=== PATIENT | male | born 1980 | race American Indian/Alaskan Native ===

== ENCOUNTER 2016-12-19 18:51 | Inpatient (IN) | payer OTHER ==
[2016-12-19 20:09] LABS: Hematocrit 46.3 % (35.5-45.6); Hemoglobin 15.6 gm/dl (11.8-15.2); Mean Corpuscular HGB Conc 34 % (32-34); Mean Corpuscular Hemoglobin 29 pg (28-32); Mean Corpuscular Volume 85 fl (84-94); Platelet Count 133 K/mm3 (140-440); Red Blood Count 5.41 M/mm3 (3.65-5.03); Red Cell Distribution Width 14.8 % (13.2-15.2); White Blood Count 4.3 K/mm3 (4.5-11.0)
[2016-12-19 20:16] LABS: Basophils % (Auto) 0.6 % (0.0-1.8)
[2016-12-19 20:20] LABS: INR 1.01 (0.87-1.13)
[2016-12-19 20:21] LABS: Partial Thromboplastin Time 24.3 Sec. (24.2-36.6)
--- NOTE | 2016-12-19 20:24 | Cat Scan Report ---
FINAL REPORT PROCEDURE: CT HEAD/BRAIN WO CON TECHNIQUE: Computerized tomography of the head was performed without contrast material. HISTORY: neuro deficits \T\lt; 6hrs or sx present upon awakening COMPARISON: No prior studies are available for comparison. FINDINGS: Skull and scalp: Normal. Paranasal sinuses: Normal. Ventricles and subarachnoid spaces: Normal. Cerebrum: No evidence of hemorrhage, acute infarction or mass . Cerebellum and brainstem: No evidence of hemorrhage, acute infarction or mass. Vasculature: Normal. Comments: None. IMPRESSION: Normal Examination
[2016-12-19 20:50] LABS: Anion Gap 14 mmol/L; BUN/Creatinine Ratio 11; Blood Urea Nitrogen 11 mg/dL (9-20); Calcium 9.3 mg/dL (8.4-10.2); Carbon Dioxide 31 mmol/L (22-30); Chloride 99.2 mmol/L (98-107); Glucose 83 mg/dL (75-100); Potassium 3.8 mmol/L (3.6-5.0); Sodium 140 mmol/L (137-145)
[2016-12-20] MEDS ORDERED: BABY ASPIRIN PO ONE (10:33)
--- NOTE | 2016-12-20 10:33 | Emergency Department Report ---
ED Neuro Deficit HPI - General Chief Complaint: Neuro Symptoms/Deficit Stated Complaint: POSS SEIZURE/SLURRED SPEECH/POSS STROKE Time Seen by Provider: 12/20/16 10:24 Source: patient Mode of arrival: Ambulatory Limitations: No Limitations - History of Present Illness Initial Comments: This is a 36-year-old male, the patient is previously unknown to this provider. He endorses a past medical history of sarcoidosis. Patient is accompanied by friends/family member. As per verbal report from friends/family, patient was in normal state of health, and then earlier on in the morning upon waking up, at approximately 5:00 in the morning, had an episode of slurred speech, dysarthria, possible facial droop. This was then followed by a generalized convulsive event. This has since resolved. The patient has no complaints at this time. There is no headache, neck pain, chest pain, abdominal pain, shortness of breath, irritative/obstructive urinary symptoms. Patient denies toxic drug consumption. -: Sudden Location: speech, left face Presenting Symptoms: Present: Sudden, Severe Headache, Unable to Speak Clearly, Altered Mental Status History of same: Yes Place: home Severity: severe Improves With: none Worsens With: none On Anticoagulants: No Associated Symptoms: denies other symptoms - Related Data Home Medications: Previous Rx's Medication Instructions Recorded Last Taken Type Benzonatate [Tessalon Perles] 100 mg PO Q8HR #14 capsule 08/21/14 Unknown Rx Prednisone 40 mg PO DAILY #10 tablet 08/21/14 Unknown Rx Tobramycin 0.3% [Tobrex] 1 drop OS Q8HR #1 bottle 02/20/15 Unknown Rx Allergies/Adverse Reactions: Allergies Allergy/AdvReac Type Severity Reaction Status Date / Time acetaminophen AdvReac Vomiting Verified 08/21/14 07:53 [From Tylenol-Codeine #3] codeine phosphate AdvReac Vomiting Verified 08/21/14 07:53 [From Tylenol-Codeine #3] tramadol AdvReac Vomiting Verified 08/21/14 07:53 ED Review of Systems ROS: Stated complaint: POSS SEIZURE/SLURRED SPEECH/POSS STROKE Other details as noted in HPI Constitutional: denies: fever Eyes: denies: eye discharge ENT: denies: epistaxis Respiratory: denies: cough Cardiovascular: denies: chest pain Gastrointestinal: denies: abdominal pain Genitourinary: denies: dysuria Musculoskeletal: denies: back pain Neurological: weakness, confusion ED Past Medical Hx - Past Medical History Previous Medical History?: Yes Additional medical history: Sarcoidosis - Surgical History Past Surgical History?: Yes Additional Surgical History: cysts removed from both arms - Social History Smoking Status: Former Smoker Substance Use Type: None - Medications Home Medications: Home Medications Medication Instructions Recorded Confirmed Last Taken Type Benzonatate [Tessalon Perles] 100 mg PO Q8HR #14 capsule 08/21/14 Unknown Rx Prednisone 40 mg PO DAILY #10 tablet 08/21/14 Unknown Rx Tobramycin 0.3% [Tobrex] 1 drop OS Q8HR #1 bottle 02/20/15 Unknown Rx ED Neuro Physical Exam - General Limitations: No Limitations General appearance: alert, in no apparent distress Suspected Stroke: Yes - Head Head exam: Present: atraumatic, normocephalic - Eye Eye exam: Present: normal appearance, EOMI. Absent: nystagmus - ENT ENT exam: Present: normal exam, normal orophraynx, mucous membranes moist, normal external ear exam - Neck Neck exam: Present: normal inspection, full ROM. Absent: tenderness, meningismus - Respiratory Respiratory exam: Present: normal lung sounds bilaterally. Absent: respiratory distress, wheezes, rales, rhonchi, stridor - Cardiovascular Cardiovascular Exam: Present: regular rate, normal rhythm, normal heart sounds. Absent: bradycardia, systolic murmur, diastolic murmur, rubs, gallop - GI/Abdominal GI/Abdominal exam: Present: soft, normal bowel sounds. Absent: distended, tenderness, guarding, rigid, pulsatile mass - Rectal Rectal exam: Present: deferred - Extremities Exam Extremities exam: Present: normal inspection, full ROM, normal capillary refill. Absent: pedal edema, joint swelling, calf tenderness - Back Exam Back exam: Present: normal inspection, full ROM. Absent: tenderness, CVA tenderness (R), CVA tenderness (L), muscle spasm, paraspinal tenderness, vertebral tenderness - Neurological Exam Neurological exam: Present: alert, oriented X3, normal gait, other (Extraocular movements intact. Tongue midline. No facial droop. Facial sensation intact to light touch in the V1, V2, V3 distribution bilaterally. 5 and 5 strength in 4 extremities.. Sensation is intact to light touch in 4 extremities.). Absent : motor sensory deficit - NIHSS Assessment Interval: Baseline 1a. Level of Consciousness: alert 1b. LOC Questions: answers correctly 1c. LOC Commands: performs tasks correctly 2. Best Gaze: normal 3. Visual: no visual loss 4. Facial Palsy: normal symmetrical movement 5b. Motor Arm Right: no drift 5a. Motor Arm Left: no drift 6a. Motor Leg Left: no drift 6b. Motor Leg Right: no drift 7. Limb Ataxia: absent 8. Sensory: normal 9. Best Language: no aphasia 10. Dysarthria: normal 11. Extinction/Inattention: no abnormality Total Score: 0 Stroke Severity: No Stroke Symptoms - Psychiatric Psychiatric exam: Present: normal affect, normal mood - Skin Skin exam: Present: warm, dry, intact, normal color. Absent: rash ED Course Vital Signs 12/19/16 12/20/16 12/20/16 19:25 02:24 03:51 Temperature 98.3 F 97.3 F L Pulse Rate 115 H 71 75 Respiratory 18 18 18 Rate Blood Pressure 130/87 127/92 130/87 Blood Pressure [Right] O2 Sat by Pulse 96 96 98 Oximetry 12/20/16 12/20/16 09:03 12:24 Temperature 99.8 F H 97.9 F Pulse Rate 82 78 Respiratory 18 18 Rate Blood Pressure 118/84 Blood Pressure 132/81 [Right] O2 Sat by Pulse 98 Oximetry - Lab Data Result diagrams: 12/19/16 19:55 12/19/16 19:55 Lab Results 12/19/16 12/19/16 12/19/16 Range/Units 19:55 19:55 19:55 WBC 4.3 L (4.5-11.0) K/mm3 RBC 5.41 H (3.65-5.03) M/mm3 Hgb 15.6 H (11.8-15.2) gm/dl Hct 46.3 H (35.5-45.6) % MCV 85 (84-94) fl MCH 29 (28-32) pg MCHC 34 (32-34) % RDW 14.8 (13.2-15.2) % Plt Count 133 L (140-440) K/mm3 Lymph % (Auto) 16.2 (13.4-35.0) % [place] % (Auto) 14.6 H (0.0-7.3) % Eos % (Auto) 6.0 H (0.0-4.3) % Baso % (Auto) 0.6 (0.0-1.8) % Lymph # 0.7 L (1.2-5.4) K/mm3 [place] # 0.6 (0.0-0.8) K/mm3 Eos # 0.3 (0.0-0.4) K/mm3 Baso # 0.0 (0.0-0.1) K/mm3 Seg Neutrophils % 62.6 (40.0-70.0) % Seg Neutrophils # 2.7 (1.8-7.7) K/mm3 PT 13.8 (12.2-14.9) Sec. INR 1.01 (0.87-1.13) APTT 24.3 (24.2-36.6) Sec. Thrombin Time (15.1-19.6) Sec. Sodium 140 (137-145) mmol/L Potassium 3.8 (3.6-5.0) mmol/L Chloride 99.2 (98-107) mmol/L Carbon Dioxide 31 H (22-30) mmol/L Anion Gap 14 mmol/L BUN 11 (9-20) mg/dL Creatinine 1.0 (0.8-1.5) mg/dL Estimated GFR > 60 ml/min BUN/Creatinine Ratio 11 % Glucose 83 (75-100) mg/dL Calcium 9.3 (8.4-10.2) mg/dL Troponin T < 0.010 (0.00-0.029) ng/mL Urine Color (Yellow) Urine Turbidity (Clear) Urine pH (5.0-7.0) Ur Specific [place] (1.003-1.030) Urine Protein (Negative) mg/dL Urine Glucose (UA) (Negative) mg/dL Urine Ketones (Negative) mg/dL Urine Blood (Negative) Urine Nitrite (Negative) Urine Bilirubin (Negative) Urine Urobilinogen (<2.0) mg/dL Ur Leukocyte Esterase (Negative) Urine WBC (Auto) (0.0-6.0) /HPF Urine RBC (Auto) (0.0-6.0) /HPF Urine Bacteria (Auto) (Negative) /HPF Urine Opiates Screen Urine Methadone Screen Ur Barbiturates Screen Ur Phencyclidine Scrn Ur Amphetamines Screen U Benzodiazepines Scrn Urine Cocaine Screen U Marijuana (THC) Screen Drugs of Abuse Note 12/19/16 12/20/16 12/20/16 Range/Units 19:55 11:22 11:22 WBC (4.5-11.0) K/mm3 RBC (3.65-5.03) M/mm3 Hgb (11.8-15.2) gm/dl Hct (35.5-45.6) % MCV (84-94) fl MCH (28-32) pg MCHC (32-34) % RDW (13.2-15.2) % Plt Count (140-440) K/mm3 Lymph % (Auto) (13.4-35.0) % [place] % (Auto) (0.0-7.3) % Eos % (Auto) (0.0-4.3) % Baso % (Auto) (0.0-1.8) % Lymph # (1.2-5.4) K/mm3 [place] # (0.0-0.8) K/mm3 Eos # (0.0-0.4) K/mm3 Baso # (0.0-0.1) K/mm3 Seg Neutrophils % (40.0-70.0) % Seg Neutrophils # (1.8-7.7) K/mm3 PT (12.2-14.9) Sec. INR (0.87-1.13) APTT (24.2-36.6) Sec. Thrombin Time 16.7 (15.1-19.6) Sec. Sodium (137-145) mmol/L Potassium (3.6-5.0) mmol/L Chloride (98-107) mmol/L Carbon Dioxide (22-30) mmol/L Anion Gap mmol/L BUN (9-20) mg/dL Creatinine (0.8-1.5) mg/dL Estimated GFR ml/min BUN/Creatinine Ratio % Glucose (75-100) mg/dL Calcium (8.4-10.2) mg/dL Troponin T (0.00-0.029) ng/mL Urine Color Yellow (Yellow) Urine Turbidity Clear (Clear) Urine pH 7.0 (5.0-7.0) Ur Specific [place] 1.012 (1.003-1.030) Urine Protein <15 mg/dl (Negative) mg/dL Urine Glucose (UA) Neg (Negative) mg/dL Urine Ketones Neg (Negative) mg/dL Urine Blood Neg (Negative) Urine Nitrite Neg (Negative) Urine Bilirubin Neg (Negative) Urine Urobilinogen 4.0 (<2.0) mg/dL Ur Leukocyte Esterase Sm (Negative) Urine WBC (Auto) 11.0 H (0.0-6.0) /HPF Urine RBC (Auto) 2.0 (0.0-6.0) /HPF Urine Bacteria (Auto) 1+ (Negative) /HPF Urine Opiates Screen Presumptive negative Urine Methadone Screen Presumptive negative Ur Barbiturates Screen Presumptive negative Ur Phencyclidine Scrn Presumptive negative Ur Amphetamines Screen Presumptive negative U Benzodiazepines Scrn Presumptive negative Urine Cocaine Screen Presumptive negative U Marijuana (THC) Screen Presumptive negative Drugs of Abuse Note Disclamer - EKG Data -: EKG Interpreted by Me EKG shows normal: sinus rhythm - Radiology Data Radiology results: report reviewed, image reviewed Noncontrast CT scan of the brain is negative. - Medical Decision Making Differential diagnosis: Transient ischemic attack, seizure, conversion disorder , tonsils paralysis Assessment and plan: 36-year-old male who presents with confounding neurologic symptoms. He is currently afebrile, with reassuring vital signs, has a GCS of 15, with an NIH score of 0, and is therefore not a TPA candidate. Laboratory studies unremarkable, CT scan of the brain unremarkable, patient to be admitted for further evaluation and management, case presented to nurse practitioner of the medical service, Galdino Logan ,she accepted the patient to her service. - Core Measures Measure Exclusions: not indicated - Thrombolytic Inclusion/Exclusion Thrombolytic Exclusion Criteria: Symptom Onset > 3 Hours Thrombolytic Contraindications: Rapidily Improving s/s Critical care attestation.: If time is entered above; I have spent that time in minutes in the direct care of this critically ill patient, excluding procedure time. ED Disposition Clinical Impression: TIA (transient ischemic attack), Convulsion Disposition: [id number] OP ADMIT IP TO THIS HOSP Is pt being admited?: Yes Does the pt Need Aspirin: Yes Condition: Stable
[2016-12-20 11:23] LABS: Urine Drugs of Abuse Note Disclamer
--- NOTE | 2016-12-20 11:47 | History and Physical Report ---
<WOODROW ROSE - Last Filed: 12/20/16 13:34> History of Present Illness Date of examination: 12/20/16 Date of admission: 12/20/2016 Chief complaint: 12/20/2016 History of present illness: Patient is a 36-year-old black male with past medical history of hypertension and sarcoidosis who presents to the Emergency department for slurred speech, clumsiness, and unable to speak. Patient waking up on 2016 around 5:30PM with slurred speech, unable to speak. Per patient girlfriend , although she noticed facial drooping to his left-sided and looking funny; but after few hours facial drooping resolved. Patient denies head trauma, headache, change in vision, nausea, and vomiting. No dizziness, SOB, chest pain, or palpitations. Patient denied urinary incontinence despite evidence described above. Patient currently smoker. Past History Past Medical History: hypertension, sarcoidosis Past Surgical History: No surgical history Social history: Lives alone, smoking Family history: CAD, hypertension Medications and Allergies Allergies Allergy/AdvReac Type Severity Reaction Status Date / Time acetaminophen AdvReac Vomiting Verified 08/21/14 07:53 [From Tylenol-Codeine #3] codeine phosphate AdvReac Vomiting Verified 08/21/14 07:53 [From Tylenol-Codeine #3] tramadol AdvReac Vomiting Verified 08/21/14 07:53 Home Medications Medication Instructions Recorded Confirmed Last Taken Type Benzonatate [Tessalon Perles] 100 mg PO Q8HR #14 capsule 08/21/14 Unknown Rx Prednisone 40 mg PO DAILY #10 tablet 08/21/14 Unknown Rx Tobramycin 0.3% [Tobrex] 1 drop OS Q8HR #1 bottle 02/20/15 Unknown Rx Active Meds: Active Medications Acetaminophen (Tylenol) 650 mg PO Q4H PRN PRN Reason: Pain MILD(1-3)/Fever >100.5/HUSAIN Atorvastatin Calcium (Lipitor) 10 mg PO QHS HUMBERTO Bisacodyl (Dulcolax) 10 mg LA QDAY PRN PRN Reason: Constipation unrelieved by MOM Enoxaparin Sodium (Lovenox) 40 mg SUB-Q QDAY HUMBERTO Ondansetron HCl (Zofran) 4 mg IM Q4H PRN PRN Reason: Nausea And Vomiting Review of Systems Constitutional: no weight gain, no fever, no chills Ears, nose, mouth and throat: no tinnitis, no decreased hearing, no nose pain, no nasal congestion, no nasal discharge Cardiovascular: no palpitations, no rapid/irregular heart beat, no edema, no syncope Respiratory: no cough with sputum, no excessive sputum, no hemoptysis, no shortness of breath, no dyspnea on exertion Gastrointestinal: no constipation, no change in bowel habits, no hematemesis Genitourinary Male: no hematuria, no flank pain, no discharge Musculoskeletal: no neck pain, no shooting arm pain, no arm numbness/tingling, no low back pain, no shooting leg pain, no leg numbness/tingling, no morning stiffness, no muscle weakness, no muscle cramps, no myalgias, no atrophy, no fractures, no loss of height, no prior amputations Integumentary: no sores, no wounds, no jaundice, no boils, no lesions, no darkening of skin, no depigmentation, no acne, no dryness Neurological: no paralysis, no weakness, no parathesias, no numbness, no tingling Psychiatric: no change in sleep habits, no sleep disturbances, no insomnia, no hypersomnia, no change in appetite, no change in libido Endocrine: no heat intolerance, no polyphagia, no excessive thirst Hematologic/Lymphatic: no easy bruising, no easy bleeding Allergic/Immunologic: no urticaria, no allergic rhinitis Exam - Constitutional Vitals: Temp Pulse Resp BP Pulse Ox 99.8 F H 82 18 118/84 98 12/20/16 09:03 12/20/16 09:03 12/20/16 09:03 12/20/16 09:03 12/20/16 03:51 General appearance: Present: no acute distress - EENT Eyes: Present: PERRL ENT: hearing intact - Neck Neck: Present: supple - Respiratory Respiratory effort: normal Respiratory: bilateral: CTA - Cardiovascular Rhythm: regular Heart Sounds: Present: S1 & S2 - Extremities Extremities: no ischemia - Abdominal General gastrointestinal: Present: soft, non-tender Male genitourinary: Present: deferred - Rectal Rectal Exam: deferred - Integumentary Integumentary: Present: clear, warm, dry - Musculoskeletal Musculoskeletal: strength equal bilaterally - Psychiatric Psychiatric: appropriate mood/affect - Neurologic Neurologic: CNII-XII intact - Allied Health Allied health notes reviewed: nursing Results - Labs CBC & Chem 7: 12/19/16 19:55 12/19/16 19:55 Labs: Laboratory Last Values WBC 4.3 K/mm3 (4.5-11.0) L 12/19/16 19:55 RBC 5.41 M/mm3 (3.65-5.03) H 12/19/16 19:55 Hgb 15.6 gm/dl (11.8-15.2) H 12/19/16 19:55 Hct 46.3 % (35.5-45.6) H 12/19/16 19:55 MCV 85 fl (84-94) 12/19/16 19:55 MCH 29 pg (28-32) 12/19/16 19:55 MCHC 34 % (32-34) 12/19/16 19:55 RDW 14.8 % (13.2-15.2) 12/19/16 19:55 Plt Count 133 K/mm3 (140-440) L 12/19/16 19:55 Lymph % (Auto) 16.2 % (13.4-35.0) 12/19/16 19:55 [place] % (Auto) 14.6 % (0.0-7.3) H 12/19/16 19:55 Eos % (Auto) 6.0 % (0.0-4.3) H 12/19/16 19:55 Baso % (Auto) 0.6 % (0.0-1.8) 12/19/16 19:55 Lymph # 0.7 K/mm3 (1.2-5.4) L 12/19/16 19:55 [place] # 0.6 K/mm3 (0.0-0.8) 12/19/16 19:55 Eos # 0.3 K/mm3 (0.0-0.4) 12/19/16 19:55 Baso # 0.0 K/mm3 (0.0-0.1) 12/19/16 19:55 Seg Neutrophils % 62.6 % (40.0-70.0) 12/19/16 19:55 Seg Neutrophils # 2.7 K/mm3 (1.8-7.7) 12/19/16 19:55 PT 13.8 Sec. (12.2-14.9) 12/19/16 19:55 INR 1.01 (0.87-1.13) 12/19/16 19:55 APTT 24.3 Sec. (24.2-36.6) 12/19/16 19:55 Thrombin Time 16.7 Sec. (15.1-19.6) 12/19/16 19:55 Sodium 140 mmol/L (137-145) 12/19/16 19:55 Potassium 3.8 mmol/L (3.6-5.0) 12/19/16 19:55 Chloride 99.2 mmol/L (98-107) 12/19/16 19:55 Carbon Dioxide 31 mmol/L (22-30) H 12/19/16 19:55 Anion Gap 14 mmol/L 12/19/16 19:55 BUN 11 mg/dL (9-20) 12/19/16 19:55 Creatinine 1.0 mg/dL (0.8-1.5) 12/19/16 19:55 Estimated GFR > 60 ml/min 12/19/16 19:55 BUN/Creatinine Ratio 11 % 12/19/16 19:55 Glucose 83 mg/dL (75-100) 12/19/16 19:55 Calcium 9.3 mg/dL (8.4-10.2) 12/19/16 19:55 Troponin T < 0.010 ng/mL (0.00-0.029) 12/19/16 19:55 - Imaging and Cardiology CT Scan - head: image reviewed (no evidence of hemorrhage, acute infarction or mass.) Assessment and Plan Assessment and plan: Patient is a 36-year-old black male with past medical history of hypertension and sarcoidosis who presents to the Emergency department for slurred speech, clumsiness, and unable to speak. Patient waking up on 2016 around 5:30PM with slurred speech, unable to speak. Per patient girlfriend , although she noticed facial drooping to his left-sided and looking funny; but after few hours facial drooping resolved. Transit Ischemic attack. CT of the head shows no evidence of hemorrhage, acute infarction or mass MRI of the brain ordered VL carotid ordered Echocardiogram Started on aspirin Started on statins Complete lipid panel ordered Frequent neuro checks. Physical therapy consult Neurology consult Supportive care Hypertension Blood pressure WNL now, we will hold until stroke rule out. Gently IV hydralazine for SBP> 160 Closely monitor blood pressure Suspected seizure EEG ordered Frequent neuro checks. Implement seizure precautions Neurology consult Supportive care Medical Noncompliance Patient noncompliance with his antihypertensive medication. Counseling done Tobacco abuse Smoking cessation counseling done. Patient strongly advised to quit. DVT prophylaxis Lovenox Advance Directives: Yes VTE prophylaxis?: Chemical Contraindication Mechanical VTE Prophylaxis: Treatment Not Indicated Plan of care discussed with patient/family: Yes <EVARISTO GATES M - Last Filed: 12/20/16 15:12> History of Present Illness Date of admission: 12/20/16 11:30 Medications and Allergies Active Meds: Active Medications Acetaminophen (Tylenol) 650 mg PO Q4H PRN PRN Reason: Pain MILD(1-3)/Fever >100.5/HUSAIN Atorvastatin Calcium (Lipitor) 10 mg PO QHS HUMBERTO Bisacodyl (Dulcolax) 10 mg LA QDAY PRN PRN Reason: Constipation unrelieved by MOM Enoxaparin Sodium (Lovenox) 40 mg SUB-Q QDAY HUMBERTO Ondansetron HCl (Zofran) 4 mg IM Q4H PRN PRN Reason: Nausea And Vomiting Exam - Constitutional Vitals: Temp Pulse Resp BP Pulse Ox 97.9 F 78 18 132/81 98 12/20/16 12:24 12/20/16 12:24 12/20/16 12:24 12/20/16 12:24 12/20/16 12:24 Results - Labs CBC & Chem 7: 12/19/16 19:55 12/19/16 19:55 Labs: Laboratory Last Values WBC 4.3 K/mm3 (4.5-11.0) L 12/19/16 19:55 RBC 5.41 M/mm3 (3.65-5.03) H 12/19/16 19:55 Hgb 15.6 gm/dl (11.8-15.2) H 12/19/16 19:55 Hct 46.3 % (35.5-45.6) H 12/19/16 19:55 MCV 85 fl (84-94) 12/19/16 19:55 MCH 29 pg (28-32) 12/19/16 19:55 MCHC 34 % (32-34) 12/19/16 19:55 RDW 14.8 % (13.2-15.2) 12/19/16 19:55 Plt Count 133 K/mm3 (140-440) L 12/19/16 19:55 Lymph % (Auto) 16.2 % (13.4-35.0) 12/19/16 19:55 [place] % (Auto) 14.6 % (0.0-7.3) H 12/19/16 19:55 Eos % (Auto) 6.0 % (0.0-4.3) H 12/19/16 19:55 Baso % (Auto) 0.6 % (0.0-1.8) 12/19/16 19:55 Lymph # 0.7 K/mm3 (1.2-5.4) L 12/19/16 19:55 [place] # 0.6 K/mm3 (0.0-0.8) 12/19/16 19:55 Eos # 0.3 K/mm3 (0.0-0.4) 12/19/16 19:55 Baso # 0.0 K/mm3 (0.0-0.1) 12/19/16 19:55 Seg Neutrophils % 62.6 % (40.0-70.0) 12/19/16 19:55 Seg Neutrophils # 2.7 K/mm3 (1.8-7.7) 12/19/16 19:55 PT 13.8 Sec. (12.2-14.9) 12/19/16 19:55 INR 1.01 (0.87-1.13) 12/19/16 19:55 APTT 24.3 Sec. (24.2-36.6) 12/19/16 19:55 Thrombin Time 16.7 Sec. (15.1-19.6) 12/19/16 19:55 Sodium 140 mmol/L (137-145) 12/19/16 19:55 Potassium 3.8 mmol/L (3.6-5.0) 12/19/16 19:55 Chloride 99.2 mmol/L (98-107) 12/19/16 19:55 Carbon Dioxide 31 mmol/L (22-30) H 12/19/16 19:55 Anion Gap 14 mmol/L 12/19/16 19:55 BUN 11 mg/dL (9-20) 12/19/16 19:55 Creatinine 1.0 mg/dL (0.8-1.5) 12/19/16 19:55 Estimated GFR > 60 ml/min 12/19/16 19:55 BUN/Creatinine Ratio 11 % 12/19/16 19:55 Glucose 83 mg/dL (75-100) 12/19/16 19:55 Calcium 9.3 mg/dL (8.4-10.2) 12/19/16 19:55 Troponin T < 0.010 ng/mL (0.00-0.029) 12/19/16 19:55 Urine Color Yellow (Yellow) 12/20/16 11:22 Urine Turbidity Clear (Clear) 12/20/16 11:22 Urine pH 7.0 (5.0-7.0) 12/20/16 11:22 Ur Specific [place] 1.012 (1.003-1.030) 12/20/16 11:22 Urine Protein <15 mg/dl mg/dL (Negative) 12/20/16 11:22 Urine Glucose (UA) Neg mg/dL (Negative) 12/20/16 11:22 Urine Ketones Neg mg/dL (Negative) 12/20/16 11:22 Urine Blood Neg (Negative) 12/20/16 11:22 Urine Nitrite Neg (Negative) 12/20/16 11:22 Urine Bilirubin Neg (Negative) 12/20/16 11:22 Urine Urobilinogen 4.0 mg/dL (<2.0) 12/20/16 11:22 Ur Leukocyte Esterase Sm (Negative) 12/20/16 11:22 Urine WBC (Auto) 11.0 /HPF (0.0-6.0) H 12/20/16 11:22 Urine RBC (Auto) 2.0 /HPF (0.0-6.0) 12/20/16 11:22 Urine Bacteria (Auto) 1+ /HPF (Negative) 12/20/16 11:22 Urine Opiates Screen Presumptive negative 12/20/16 11:22 Urine Methadone Screen Presumptive negative 12/20/16 11:22 Ur Barbiturates Screen Presumptive negative 12/20/16 11:22 Ur Phencyclidine Scrn Presumptive negative 12/20/16 11:22 Ur Amphetamines Screen Presumptive negative 12/20/16 11:22 U Benzodiazepines Scrn Presumptive negative 12/20/16 11:22 Urine Cocaine Screen Presumptive negative 12/20/16 11:22 U Marijuana (THC) Screen Presumptive negative 12/20/16 11:22 Drugs of Abuse Note Disclamer 12/20/16 11:22 Assessment and Plan Assessment and plan: I saw and evaluated the patient. I agree with the findings and the plan of care as documented in the Nurse Practitioner's H/p note. Advance Directives: Yes VTE prophylaxis?: Chemical Plan of care discussed with patient/family: Yes
[2016-12-20 11:49] LABS: Bacteria,Urine 1+ /HPF (Negative); Bilirubin,Urine NEG (Negative); Blood,Urine NEG (Negative); Ketones,Urine NEG (Negative); Leukocyte Esterase,Urine SM (Negative); Nitrite,Urine NEG (Negative); Protein,Urine <15 mg/dL mg/dL (Negative)
[2016-12-20] MEDS ORDERED: ZOFRAN IM PRN (13:00)
[2016-12-20] MEDS ORDERED: DULCOLAX PR PRN (13:00)
[2016-12-20] MEDS ORDERED: TYLENOL PO PRN (13:00)
[2016-12-20] MEDS ORDERED: NORVASC PO SCH (14:00)
--- NOTE | 2016-12-20 15:50 | Magnetic Resonance Report ---
MRI of the brain without contrast. History: TIA. Procedure: Routine brain protocol no contrast. Findings: The posterior fossa is normal. The ventricles are normal in size and contour. There no masses or extra-axial collections. The hill-white matter junction is normal. There is no restricted diffusion. The pituitary gland is normal. The visualized extracranial structures are normal. Impression: Negative study.
[2016-12-21 06:05] LABS: Basophils % (Auto) 0.7 % (0.0-1.8); Eosinophils % (Auto) 11.1 % (0.0-4.3); Hematocrit 44.6 % (35.5-45.6); Hemoglobin 14.9 gm/dl (11.8-15.2); Mean Corpuscular HGB Conc 34 % (32-34); Mean Corpuscular Hemoglobin 29 pg (28-32); Mean Corpuscular Volume 87 fl (84-94); Platelet Count 118 K/mm3 (140-440); Red Blood Count 5.15 M/mm3 (3.65-5.03); White Blood Count 2.4 K/mm3 (4.5-11.0)
[2016-12-21 06:26] LABS: Anion Gap 14 mmol/L; BUN/Creatinine Ratio 9; Blood Urea Nitrogen 9 mg/dL (9-20); Calcium 8.7 mg/dL (8.4-10.2); Carbon Dioxide 30 mmol/L (22-30); Chloride 99.7 mmol/L (98-107); Cholesterol 113 mg/dL (50-199); Glucose 95 mg/dL (75-100); HDL Cholesterol 32 mg/dL (40-59); LDL Cholesterol,Direct 51 mg/dL (50-130); Potassium 4.1 mmol/L (3.6-5.0); Sodium 140 mmol/L (137-145); Triglycerides 150 mg/dL (2-149)
--- NOTE | 2016-12-21 08:59 | Discharge Summary ---
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 Patient waking up on 2016 around 5:30PM with slurred speech, unable to speak. Per patient girlfriend , although she noticed facial drooping to his left-sided and looking funny; but after few hours facial drooping resolved. Patient denies head trauma, headache, change in vision, nausea, and vomiting. No dizziness, SOB, chest pain, or palpitations. Patient denied urinary incontinence despite evidence described above. Patient currently smoker. Patient was worked up for stroke and results were unremarkable. I believe the patient didn't have TIA, given his young age, low risk factor and presentation. Patient didn't have any episode after admission and he was discharged home with the advice to have follow up with PCP. Patient was hemodynamically stable at the time of discharge. Disposition: -01 TO HOME OR SELFCARE Time spent for discharge: 31 minutes - Discharge Diagnoses (1) Convulsion Status: Acute Qualifiers: Convulsion type: unspecified Qualified Code(s): R56.9 - Unspecified convulsions (2) TIA (transient ischemic attack) Status: Ruled-out Qualifiers: Transient cerebral ischemia type: T Core Measure Documentation - Palliative Care Palliative Care/ Comfort Measures: Not Applicable - Core Measures Any of the following diagnoses?: none Exam - Physical Exam Narrative exam: Not in cardiopulmonary distress. The patient appeared well nourished and normally developed. Vital signs as documented. Head exam is unremarkable. No scleral icterus . Neck is without jugular venous distension, thyromegaly, or carotid bruits. Lungs are clear to auscultation. Cardiac exam reveals regular rate and Rhythm. First and second heart sounds normal. No murmurs, rubs or gallops. Abdominal exam reveals normal bowel sounds, no masses, no organomegaly and no aortic enlargement. Extremities are nonedematous and both femoral and pedal pulses are normal. 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 No focal weakness. - Constitutional Vitals: Temp Pulse Resp BP Pulse Ox 98.5 F 82 19 114/72 99 12/21/16 04:14 12/21/16 04:14 12/21/16 04:14 12/21/16 04:14 12/21/16 04:14 Plan Activity: no restrictions Weight Bearing Status: Full Weight Bearing Diet: regular Follow up with: PRIMARY CAREMD [Primary Care Provider] - 3-5 Days Forms: Work/School Release Form
[2016-12-21 09:05] VITALS: BP 108/69
[2016-12-21] MEDS ORDERED: LOVENOX SUB-Q SCH (10:00)
== END 2016-12-21 13:40 | disposition home or self-care (01) | DRG 101 ==
LOC: ED 18:51 → 4A 12-20 11:30
PROVIDERS: ADMIT Internal Medicine; ATTEND Internal Medicine
DX: R56.9 Unspecified convulsions (principal); I25.10 Atherosclerotic heart disease of native coronary artery without angina pectoris; I10 Essential (primary) hypertension; Z87.891 Personal history of nicotine dependence; Z88.1 Allergy status to other antibiotic agents; Z88.5 Allergy status to narcotic agent; Z88.8 Allergy status to other drugs, medicaments and biological substances
CPT/HCPCS: 36415; 70450; 70551; 80048; 80061; 80307; 81001; 82962; 84484; 85025; 85610; 85670; 85730; 93005; 93010; 93306; 93880; A9270-GY; J1650

== ENCOUNTER 2017-01-24 07:55 | Emergency (ER) | payer OTHER ==
[2017-01-24] MEDS ORDERED: MOTRIN PO ONE (10:24)
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
[2017-01-24 13:26] VITALS: BP 120/80
== END 2017-01-24 13:25 | disposition home or self-care (01) ==
LOC: ED 07:55
DX: M54.5 Low back pain (principal); M54.6 Pain in thoracic spine; M51.9 Unspecified thoracic, thoracolumbar and lumbosacral intervertebral disc disorder; V49.49XA Driver injured in collision with other motor vehicles in traffic accident, initial encounter; Y93.89 Activity, other specified; Y92.89 Other specified places as the place of occurrence of the external cause; Y99.8 Other external cause status
CPT/HCPCS: 72128; 72131

== ENCOUNTER 2018-04-10 20:27 | Emergency (ER) | payer OTHER ==
--- NOTE | 2018-04-10 21:04 | Emergency Department Report ---
ED General Adult HPI - General Chief complaint: Seizure Stated complaint: SEIZURES Time Seen by Provider: 04/10/18 20:43 Source: patient, EMS Mode of arrival: Stretcher Limitations: No Limitations - History of Present Illness Initial comments: 37 y.o. male with history of sarcoidosis presents with complaint of seizures. Patient states that he had not had a seizure since 2017 he was admitted to this facility. According to his significant other patient ate and then fell asleep. She states the patient was shaking in his sleep which lasted for 10 minutes. She also states that the patient was foaming at the mouth. Patient is also rolled back during this procedure and he was not conscious according to her. Patient denies any urinary incontinence but states he may have bit his tongue. Patient say he has no knowledge of the event and currently is asymptomatic. Patient denies any focal weakness or slurred speech. Severity scale (0 -10): 0 - Related Data Previous Rx's Medication Instructions Recorded Last Taken Type Tobramycin 0.3% [Tobrex] 1 drop OS Q8HR #1 bottle 02/20/15 1 Day Ago Rx ~12/20/16 Cyclobenzaprine [Flexeril] 10 mg PO TID PRN #15 tablet 01/24/17 Unknown Rx Ibuprofen [Motrin] 600 mg PO Q8H PRN #15 tablet 01/24/17 Unknown Rx levETIRAcetam [Keppra TAB] 500 mg PO BID 30 Days #60 tablet 04/10/18 Unknown Rx Allergies Allergy/AdvReac Type Severity Reaction Status Date / Time acetaminophen AdvReac Vomiting Verified 08/21/14 07:53 [From Tylenol-Codeine #3] codeine phosphate AdvReac Vomiting Verified 08/21/14 07:53 [From Tylenol-Codeine #3] tramadol AdvReac Vomiting Verified 08/21/14 07:53 ED Review of Systems ROS: Stated complaint: SEIZURES Other details as noted in HPI Constitutional: denies: chills, fever Eyes: denies: eye pain, eye discharge, vision change ENT: denies: ear pain, throat pain Respiratory: denies: cough, shortness of breath, wheezing Cardiovascular: denies: chest pain, palpitations Endocrine: no symptoms reported Gastrointestinal: denies: abdominal pain, nausea, diarrhea Genitourinary: denies: urgency, dysuria Musculoskeletal: denies: back pain, joint swelling, arthralgia Skin: denies: rash, lesions Neurological: other (seizure) Psychiatric: denies: anxiety, depression Hematological/Lymphatic: denies: easy bleeding, easy bruising ED Past Medical Hx - Past Medical History Previous Medical History?: Yes Hx Congestive Heart Failure: No Hx Diabetes: No Hx Asthma: No Hx COPD: No Additional medical history: Sarcoidosis - Surgical History Additional Surgical History: cysts removed from both arms - Social History Smoking Status: Never Smoker Substance Use Type: Alcohol - Medications Home Medications: Home Medications Medication Instructions Recorded Confirmed Last Taken Type Tobramycin 0.3% [Tobrex] 1 drop OS Q8HR #1 bottle 02/20/15 12/21/16 1 Day Ago Rx ~12/20/16 Cyclobenzaprine [Flexeril] 10 mg PO TID PRN #15 tablet 01/24/17 Unknown Rx Ibuprofen [Motrin] 600 mg PO Q8H PRN #15 tablet 01/24/17 Unknown Rx levETIRAcetam [Keppra TAB] 500 mg PO BID 30 Days #60 tablet 04/10/18 Unknown Rx ED Physical Exam - General Limitations: No Limitations General appearance: alert, in no apparent distress, other (comfortable) - Head Head exam: Present: atraumatic, normocephalic - Eye Eye exam: Present: normal appearance - ENT ENT exam: Present: mucous membranes moist - Neck Neck exam: Present: normal inspection - Respiratory Respiratory exam: Present: normal lung sounds bilaterally. Absent: respiratory distress - Cardiovascular Cardiovascular Exam: Present: regular rate, normal rhythm. Absent: systolic murmur, diastolic murmur, rubs, gallop - GI/Abdominal GI/Abdominal exam: Present: soft, normal bowel sounds - Rectal Rectal exam: Present: deferred - Extremities Exam Extremities exam: Present: normal inspection - Back Exam Back exam: Present: normal inspection - Neurological Exam Neurological exam: Present: alert, oriented X3, CN II-XII intact, reflexes normal. Absent: motor sensory deficit - Psychiatric Psychiatric exam: Present: normal affect, normal mood - Skin Skin exam: Present: warm, dry, intact, normal color. Absent: rash ED Course Vital Signs 04/10/18 04/10/18 20:29 22:23 Temperature 97.8 F Pulse Rate 124 H 91 H Respiratory 18 12 Rate Blood Pressure 135/92 Blood Pressure 135/92 126/77 [Left] O2 Sat by Pulse 99 98 Oximetry ED Medical Decision Making - Lab Data Result diagrams: 04/10/18 20:50 04/10/18 20:50 - Medical Decision Making Patient currently has normal neurologic exam and received a bolus of normal saline as well as 1 g of IV While in the emergency department. Patient has had no subsequent seizure activity while here in emergency department. Patient to be discharged to follow-up with neurology. Patient made aware that he does not need to drive a motor vehicle until he has been cleared by neurology. - Differential Diagnosis Seizure; Anemia; Electrolyte Abnormality Critical care attestation.: If time is entered above; I have spent that time in minutes in the direct care of this critically ill patient, excluding procedure time. ED Disposition Clinical Impression: Seizure Disposition: DC- TO HOME OR SELFCARE Is pt being admited?: No Condition: Good Instructions: Epilepsy (ED) Prescriptions: levETIRAcetam [Keppra TAB] 500 mg PO BID 30 Days #60 tablet Referrals: ZINA BAUTISTA MD [Staff Physician] - 3-5 Days CYNTHIA CARLISLE MD [Primary Care Provider] - 3-5 Days Time of Disposition: 22:43 Print Language: PRYDEINIG
[2018-04-10 21:08] LABS: Hematocrit 47.1 % (35.5-45.6); Hemoglobin 16.1 gm/dl (11.8-15.2); Mean Corpuscular HGB Conc 34 % (32-34); Mean Corpuscular Volume 86 fl (84-94); Platelet Count 151 K/mm3 (140-440); Red Blood Count 5.49 M/mm3 (3.65-5.03)
[2018-04-10] MEDS ORDERED: NACL 0.9% 1000 ML 1,000 ML IV ONE (21:09)
[2018-04-10] MEDS ORDERED: KEPPRA 1,000 MG/NS 0.75% 100ML 1,000 MG/100 ML BAG IV ONE (21:09)
[2018-04-10 21:22] LABS: BUN/Creatinine Ratio 13; Blood Urea Nitrogen 14 mg/dL (9-20); Calcium 8.9 mg/dL (8.4-10.2); Hemolysis Index 103
[2018-04-10 21:42] LABS: Alanine Aminotransferase 21 units/L (7-56)
[2018-04-10 21:43] LABS: Bilirubin,Direct < 0.2 mg/dL (0-0.2)
--- NOTE | 2018-04-10 22:27 | Cat Scan Report ---
FINAL REPORT EXAM: CT HEAD/BRAIN WO CON HISTORY: Seizure TECHNIQUE: CT head without contrast PRIORS: None. FINDINGS: No acute intra-axial or extra-axial hemorrhage is identified. There is no evidence of midline shift or mass effect. The ventricles and sulci are within normal limits. Jimenez-white matter differentiation is intact. No acute parenchymal abnormalities seen. Bony calvarium is grossly intact. Visualized portions of the mastoids and paranasal sinuses are unre markable. IMPRESSION: Negative CT head
[2018-04-10 22:51] LABS: Amphetamine Screen,Urine PRESUMPTIVE NEGATIVE; Benzodiazepines Screen,Urine PRESUMPTIVE NEGATIVE; Cannabinoid Screen,Urine PRESUMPTIVE NEGATIVE; Cocaine Screen,Urine PRESUMPTIVE NEGATIVE; Methadone Screen,Urine PRESUMPTIVE NEGATIVE; Opiate Screen,Urine PRESUMPTIVE NEGATIVE
[2018-04-10 23:06] VITALS: BP 125/84
== END 2018-04-10 23:06 | disposition home or self-care (01) ==
LOC: ED 20:27
DX: R56.9 Unspecified convulsions (principal); Z88.6 Allergy status to analgesic agent; Z88.5 Allergy status to narcotic agent
CPT/HCPCS: 36415; 70450; 80048; 80076; 80307; 82550; 82962; 85027; 96374; 99285; G0480; J1953; J7030; 80320

== ENCOUNTER 2018-08-07 08:59 | Outpatient (CLI) | payer SELFPAY ==
[2018-08-07 09:29] LABS: Hematocrit 44.5 % (35.5-45.6); Hemoglobin 15.2 gm/dl (11.8-15.2); Mean Corpuscular HGB Conc 34 % (32-34); Mean Corpuscular Volume 87 fl (84-94); Platelet Count 130 K/mm3 (140-440); Red Blood Count 5.13 M/mm3 (3.65-5.03); Red Cell Distribution Width 15.4 % (13.2-15.2)
[2018-08-07 09:57] LABS: Alanine Aminotransferase 21 units/L (7-56); Albumin 4.1 g/dL (3.9-5); BUN/Creatinine Ratio 10; Blood Urea Nitrogen 11 mg/dL (9-20); Calcium 9.2 mg/dL (8.4-10.2); Hemolysis Index 8
== END 2018-08-07 09:00 | disposition home or self-care (01) ==
LOC: LAB 08:59
PROVIDERS: ATTEND Internal Medicine
DX: D86.9 Sarcoidosis, unspecified (principal)
CPT/HCPCS: 36415; 80053; 82164; 85027

== ENCOUNTER 2018-08-08 06:30 | Emergency (ER) | payer OTHER ==
[2018-08-08] MEDS ORDERED: KEPPRA 1,000 MG/NS 0.75% 100ML 1,000 MG/100 ML BAG IV ONE (07:52)
--- NOTE | 2018-08-08 08:12 | Emergency Department Report ---
HPI - General Chief Complaint: Seizure Time Seen by Provider: 08/08/18 07:52 - HPI HPI: Room 26 The patient is a 38-year-old male presented with a chief complaint of seizure. The patient has a history of seizures but states he has not taken any medication since he was last prescribed in March 2018. This morning for 01:00 the patient's significant other noticed he was having a seizure so she turned to one side and called EMS. The patient was evaluated. At approximately 05:00 the patient had a second seizure in addition to bowel and bladder incontinence and subsequently came to the ED for evaluation. 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 Duration: [See above] Quality: Generalized tonic-clonic Severity: Moderate Modifying factors: [see above] Context: [see above] Mode of transportation: [not driving] ED Past Medical Hx - Past Medical History Previous Medical History?: Yes Additional medical history: Sarcoidosis - Surgical History Past Surgical History?: Yes Additional Surgical History: cysts removed from both arms - Family History Family history: no significant - Social History Smoking Status: Never Smoker Substance Use Type: None (denies illicit drug use), Alcohol (occasional) - Medications Home Medications: Home Medications Medication Instructions Recorded Confirmed Last Taken Type Tobramycin 0.3% [Tobrex] 1 drop OS Q8HR #1 bottle 02/20/15 12/21/16 1 Day Ago Rx ~12/20/16 Cyclobenzaprine [Flexeril] 10 mg PO TID PRN #15 tablet 01/24/17 Unknown Rx Ibuprofen [Motrin] 600 mg PO Q8H PRN #15 tablet 01/24/17 Unknown Rx levETIRAcetam [Keppra TAB] 500 mg PO BID 30 Days #60 tablet 04/10/18 Unknown Rx levETIRAcetam [Keppra TAB] 500 mg PO BID #90 tablet 08/08/18 Unknown Rx ED Review of Systems ROS: Stated complaint: SEIZURE Other details as noted in HPI Constitutional: no symptoms reported Eyes: denies: eye pain ENT: denies: throat pain Respiratory: no symptoms reported Cardiovascular: denies: chest pain Endocrine: no symptoms reported Gastrointestinal: denies: abdominal pain Genitourinary: denies: dysuria Musculoskeletal: denies: back pain Neurological: other (seizure). denies: headache Physical Exam - Physical Exam Physical Exam: GENERAL: The patient is well-developed well-nourished male lying on stretcher not appearing to be in acute distress. [] HEENT: Normocephalic. Atraumatic. Extraocular motions are intact. Patient has moist mucous membranes. NECK: Supple. Trachea midline. No axial tenderness to palpation CHEST/LUNGS: Clear to auscultation. There is no respiratory distress noted. HEART/CARDIOVASCULAR: Regular. There is no tachycardia. There is no gallop rub or murmur. ABDOMEN: Abdomen is soft, nontender. Patient has normal bowel sounds. There is no abdominal distention. SKIN: There is no rash. There is no edema. There is no diaphoresis. NEURO: The patient is awake, alert, and oriented. The patient is cooperative. The patient has no focal neurologic deficits. The patient has normal speech. Cranial nerves II through XII grossly intact, no drift MUSCULOSKELETAL: There is no evidence of acute injury. ED Medical Decision Making - Lab Data Result diagrams: 08/08/18 08:18 08/08/18 07:28 Laboratory Tests 08/08/18 08/08/18 07:28 08:18 WBC 7.7 RBC 5.00 Hgb 14.8 Hct 42.9 MCV 86 MCH 30 MCHC 34 RDW 15.3 H Plt Count 125 L Sodium 142 Potassium 4.7 Chloride 103.7 Carbon Dioxide 23 Anion Gap 20 BUN 13 Creatinine 1.3 Estimated GFR > 60 BUN/Creatinine Ratio 10 Glucose 105 H Calcium 8.6 - Differential Diagnosis seizure Critical care attestation.: If time is entered above; I have spent that time in minutes in the direct care of this critically ill patient, excluding procedure time. ED Disposition Clinical Impression: Seizure Disposition: DC-01 TO HOME OR SELFCARE Is pt being admited?: No Does the pt Need Aspirin: No Condition: Stable Instructions: Epilepsy (ED) Additional Instructions: Return to the emergency department immediately should you develop worsening symptoms, fever, inability to tolerate food or liquid or any other concerns. Prescriptions: levETIRAcetam [Keppra TAB] 500 mg PO BID #90 tablet Referrals: RONALD GRACE MD [Staff Physician] - 3-5 Days (Dr. Grace is a neurologist. Please follow-up with him for further evaluation) Time of Disposition: 08:39
[2018-08-08 08:23] LABS: BUN/Creatinine Ratio 10; Blood Urea Nitrogen 13 mg/dL (9-20); Calcium 8.6 mg/dL (8.4-10.2); Hemolysis Index 24
[2018-08-08 08:32] LABS: Hematocrit 42.9 % (35.5-45.6); Hemoglobin 14.8 gm/dl (11.8-15.2); Mean Corpuscular HGB Conc 34 % (32-34); Mean Corpuscular Volume 86 fl (84-94); Platelet Count 125 K/mm3 (140-440); Red Cell Distribution Width 15.3 % (13.2-15.2)
[2018-08-08 09:42] VITALS: BP 123/83
== END 2018-08-08 09:42 | disposition home or self-care (01) ==
LOC: ED 06:30
DX: R56.9 Unspecified convulsions (principal); Z79.899 Other long term (current) drug therapy; Z88.6 Allergy status to analgesic agent; Z88.8 Allergy status to other drugs, medicaments and biological substances
CPT/HCPCS: 36415; 80048; 85027; 96374; 99284; J1953

== ENCOUNTER 2018-08-12 10:41 | Emergency (ER) | payer SELFPAY ==
[2018-08-12 10:48] VITALS: BP 141/89
[2018-08-12] MEDS ORDERED: TORADOL IM ONE (11:25)
--- NOTE | 2018-08-12 11:39 | Emergency Department Report ---
ED ENT HPI - General Chief complaint: Dental/Oral Stated complaint: L SIDE OF TONGUE PAIN/NEED ANTIBIOTIC Time Seen by Provider: 08/12/18 11:09 Source: patient Mode of arrival: Ambulatory Limitations: No Limitations - History of Present Illness Initial comments: He presents to ED complaining of tongue pain that he sustained from accidentally bite his tongue when he had his seizure episode some move last week ago. Patient states he followed up with his primary care physician and was told to return to the ED to get some antibiotics. He denies fever, chills or any symptoms - Related Data Previous Rx's Medication Instructions Recorded Last Taken Type Tobramycin 0.3% [Tobrex] 1 drop OS Q8HR #1 bottle 02/20/15 1 Day Ago Rx ~12/20/16 Cyclobenzaprine [Flexeril] 10 mg PO TID PRN #15 tablet 01/24/17 Unknown Rx Ibuprofen [Motrin] 600 mg PO Q8H PRN #15 tablet 01/24/17 Unknown Rx levETIRAcetam [Keppra TAB] 500 mg PO BID 30 Days #60 tablet 04/10/18 Unknown Rx levETIRAcetam [Keppra TAB] 500 mg PO BID #90 tablet 08/08/18 Unknown Rx Amoxicillin/Potassium Clav 1 each PO BID #20 tablet 08/12/18 Unknown Rx [Augmentin 875-125 Tablet] Chlorhexidine Mouthwash [Peridex] 15 ml MM TID #1 bottle 08/12/18 Unknown Rx Naproxen [Naprosyn] 500 mg PO BID #30 tablet 08/12/18 Unknown Rx Allergies Allergy/AdvReac Type Severity Reaction Status Date / Time acetaminophen AdvReac Vomiting Verified 08/12/18 10:46 [From Tylenol-Codeine #3] codeine phosphate AdvReac Vomiting Verified 08/12/18 10:46 [From Tylenol-Codeine #3] tramadol AdvReac Vomiting Verified 08/12/18 10:46 ED Dental HPI - General Chief complaint: Dental/Oral Stated complaint: L SIDE OF TONGUE PAIN/NEED ANTIBIOTIC Time Seen by Provider: 08/12/18 11:09 Source: patient Mode of arrival: Ambulatory Limitations: No Limitations - Related Data Previous Rx's Medication Instructions Recorded Last Taken Type Tobramycin 0.3% [Tobrex] 1 drop OS Q8HR #1 bottle 02/20/15 1 Day Ago Rx ~12/20/16 Cyclobenzaprine [Flexeril] 10 mg PO TID PRN #15 tablet 01/24/17 Unknown Rx Ibuprofen [Motrin] 600 mg PO Q8H PRN #15 tablet 01/24/17 Unknown Rx levETIRAcetam [Keppra TAB] 500 mg PO BID 30 Days #60 tablet 04/10/18 Unknown Rx levETIRAcetam [Keppra TAB] 500 mg PO BID #90 tablet 08/08/18 Unknown Rx Amoxicillin/Potassium Clav 1 each PO BID #20 tablet 08/12/18 Unknown Rx [Augmentin 875-125 Tablet] Chlorhexidine Mouthwash [Peridex] 15 ml MM TID #1 bottle 08/12/18 Unknown Rx Naproxen [Naprosyn] 500 mg PO BID #30 tablet 08/12/18 Unknown Rx Allergies Allergy/AdvReac Type Severity Reaction Status Date / Time acetaminophen AdvReac Vomiting Verified 08/12/18 10:46 [From Tylenol-Codeine #3] codeine phosphate AdvReac Vomiting Verified 08/12/18 10:46 [From Tylenol-Codeine #3] tramadol AdvReac Vomiting Verified 08/12/18 10:46 ED Review of Systems ROS: Stated complaint: L SIDE OF TONGUE PAIN/NEED ANTIBIOTIC Other details as noted in HPI Comment: All other systems reviewed and negative ED Past Medical Hx - Past Medical History Previous Medical History?: Yes Hx Congestive Heart Failure: No Hx Diabetes: No Hx Seizures: Yes Hx Asthma: No Hx COPD: No Additional medical history: Sarcoidosis - Surgical History Past Surgical History?: Yes Additional Surgical History: cysts removed from both arms - Social History Smoking Status: Never Smoker Substance Use Type: None - Medications Home Medications: Home Medications Medication Instructions Recorded Confirmed Last Taken Type Tobramycin 0.3% [Tobrex] 1 drop OS Q8HR #1 bottle 02/20/15 12/21/16 1 Day Ago Rx ~12/20/16 Cyclobenzaprine [Flexeril] 10 mg PO TID PRN #15 tablet 01/24/17 Unknown Rx Ibuprofen [Motrin] 600 mg PO Q8H PRN #15 tablet 01/24/17 Unknown Rx levETIRAcetam [Keppra TAB] 500 mg PO BID 30 Days #60 tablet 04/10/18 Unknown Rx levETIRAcetam [Keppra TAB] 500 mg PO BID #90 tablet 08/08/18 Unknown Rx Amoxicillin/Potassium Clav 1 each PO BID #20 tablet 08/12/18 Unknown Rx [Augmentin 875-125 Tablet] Chlorhexidine Mouthwash [Peridex] 15 ml MM TID #1 bottle 08/12/18 Unknown Rx Naproxen [Naprosyn] 500 mg PO BID #30 tablet 08/12/18 Unknown Rx ED Physical Exam - General Limitations: No Limitations General appearance: alert, in no apparent distress - Head Head exam: Present: atraumatic, normocephalic - Eye Eye exam: Present: normal appearance - ENT ENT exam: Present: mucous membranes moist - Expanded ENT Exam Expanded Mouth exam: Present: normal external inspection, other (tong abrasion to the lateral left tongue) Teeth exam: Present: normal inspection - Neck Neck exam: Present: normal inspection - Respiratory Respiratory exam: Present: normal lung sounds bilaterally. Absent: respiratory distress - Cardiovascular Cardiovascular Exam: Present: regular rate, normal rhythm. Absent: systolic murmur, diastolic murmur, rubs, gallop - GI/Abdominal GI/Abdominal exam: Present: soft, normal bowel sounds - Rectal Rectal exam: Present: deferred - Extremities Exam Extremities exam: Present: normal inspection - Back Exam Back exam: Present: normal inspection - Neurological Exam Neurological exam: Present: alert, oriented X3 - Psychiatric Psychiatric exam: Present: normal affect, normal mood - Skin Skin exam: Present: warm, dry, intact, normal color. Absent: rash ED Course Vital Signs 08/12/18 10:46 Temperature 97.4 F L Pulse Rate 84 Respiratory 16 Rate Blood Pressure 141/89 O2 Sat by Pulse 95 Oximetry ED Medical Decision Making - Medical Decision Making 30-year-old male presented tongue pain. Discussed antibiotic mouthwash to prevent bacterial infection of the tongue. Vital signs are normal discussed follow-up with primary care physician. Patient is in no acute distress or has any neurological deficits. Signed vital signs are normal. Critical care attestation.: If time is entered above; I have spent that time in minutes in the direct care of this critically ill patient, excluding procedure time. ED Disposition Clinical Impression: Tongue pain, Abrasion of tongue Disposition: DC- TO HOME OR SELFCARE Is pt being admited?: No Does the pt Need Aspirin: No Condition: Stable Instructions: Abrasion (ED) Additional Instructions: Make sure to follow up with the primary care physician as discussed. Take all your medications as you've been prescribed. If you have any worsening symptoms or develop new symptoms please return to ED immediately. Prescriptions: Amoxicillin/Potassium Clav [Augmentin 875-125 Tablet] 1 each PO BID #20 tablet Naproxen [Naprosyn] 500 mg PO BID #30 tablet Chlorhexidine Mouthwash [Peridex] 15 ml MM TID #1 bottle [facility] - 3-5 Days Forms: Accompanied Note, Work/School Release Form(ED) Time of Disposition: 11:47
== END 2018-08-12 12:01 | disposition home or self-care (01) ==
LOC: ED 10:41
DX: S00.512A Abrasion of oral cavity, initial encounter (principal); Z88.5 Allergy status to narcotic agent; W50.3XXA Accidental bite by another person, initial encounter; Y93.89 Activity, other specified; Y92.89 Other specified places as the place of occurrence of the external cause; Y99.8 Other external cause status
CPT/HCPCS: 96372; 99282; J1885

== ENCOUNTER 2019-08-26 09:58 | Outpatient (CLI) | payer OTHER ==
[2019-08-26 10:38] LABS: Hematocrit 49.2 % (35.5-45.6); Mean Corpuscular HGB Conc 33 % (32-34); Mean Corpuscular Volume 84 fl (84-94); Platelet Count 157 K/mm3 (140-440); Red Blood Count 5.85 M/mm3 (3.65-5.03); Red Cell Distribution Width 18.2 % (13.2-15.2)
[2019-08-26 11:36] LABS: Alanine Aminotransferase 30 units/L (7-56); Albumin 4.4 g/dL (3.9-5); BUN/Creatinine Ratio 9; Blood Urea Nitrogen 12 mg/dL (9-20); Calcium 9.4 mg/dL (8.4-10.2)
[2019-08-26 11:37] LABS: Hemolysis Index 8
== END 2019-08-26 09:59 | disposition home or self-care (01) ==
LOC: LAB 09:58
PROVIDERS: ATTEND Internal Medicine
DX: D86.9 Sarcoidosis, unspecified (principal)
CPT/HCPCS: 36415; 80053; 82164; 85027

== ENCOUNTER 2020-04-01 09:54 | Outpatient (CLI) | payer BC ==
--- NOTE | 2020-04-01 10:41 | XRay Report ---
CHEST 2 VIEWS INDICATION: SARCOIDOSIS. COMPARISON: None FINDINGS: Support devices: None. Heart: Within normal limits. Lungs/pleura: No acute air space or interstitial disease. No pneumothorax. Additional findings: None. IMPRESSION: Unremarkable chest films. No findings to suggest pulmonary sarcoidosis on x-ray. Signer Name: Amanuel Remy Jr, MD Signed: 04/01/2020 10:36 AM Workstation Name: [id number]
== END 2020-04-01 09:55 | disposition home or self-care (01) ==
LOC: LAB 09:54
PROVIDERS: ATTEND Internal Medicine
DX: D86.9 Sarcoidosis, unspecified (principal)
CPT/HCPCS: 36415; 71046; 82164